=== PATIENT | female | born 1950 | race Caucasian/White ===

== ENCOUNTER 2017-06-19 08:00 | Day surgery (SDC) | payer OTHER ==
[2017-06-18 13:31] VITALS: BMI 22.6
[2017-06-19 11:50] VITALS: TEMP 97.6
[2017-06-19 15:31] VITALS: BP 152/63; PULSE 69
== END 2017-06-19 14:40 | disposition home or self-care (01) ==
LOC: JASU-SURG 08:00
PROVIDERS: ATTEND Surgery
PROC: 0WHG43Z Insertion of Infusion Device into Peritoneal Cavity, Percutaneous Endoscopic Approach (ICD-10-PCS; principal; 2017-06-19)
DX: E11.22 Type 2 diabetes mellitus with diabetic chronic kidney disease (principal); E11.65 Type 2 diabetes mellitus with hyperglycemia; N18.6 End stage renal disease; Z99.2 Dependence on renal dialysis
CPT/HCPCS: 36415; 82962; 84132; 94760